=== PATIENT | female | born 1940 | race Caucasian/White ===

== ENCOUNTER 2020-12-31 10:15 | Inpatient (IN) ==
[2020-12-31 12:12] LABS: Basophils % 0.5 % (0.0-0.8); Eosinophils # 0.6 10*3/uL (0.0-0.87); Eosinophils % 6.6 % (0.00-10.9); Hematocrit 31.7 VOL% (35.7-47.0); Hemoglobin 9.2 GM/DL (12.0-16.0); Immature Granulocytes % 0.5 %; Immature Granulocytes Absolute 0.04 #; Lymphocytes % 11.2 % (21.3-54.2); Mean Corpuscular Volume 90.8 FL (87-102); Monocytes % 10.5 % (1.7-12.7); NRBC # 0.02 10*3/uL; Neutrophils % 70.7 % (38.7-73.9); Platelet Count 201 T/CUMM (130-400); Red Blood Count 3.49 MC/CUMM (3.8-5.5); Red Cell Distribution Width 17.6 % (9.3-17.3); White Blood Count 8.5 T/CUMM (4-12)
[2020-12-31 12:13] LABS: Anisocytosis 2+; Hypochromasia 1+; Macrocytosis 1+; Microcytosis 2+; Polychromasia 1+
[2020-12-31 12:15] LABS: Platelet Estimate Normal; Spherocytes 1+
[2020-12-31 12:27] LABS: Albumin 3.1 G/DL (3.4-5.0); Bilirubin,Total 0.6 MG/DL (0.2-1.0); Calcium 9.2 MG/DL (8.5-10.1); Osmolality,Calculated 284.7 MOS/KG (273-304); Potassium 3.8 MMOL/L (3.5-5.1); Total Protein 7.3 G/DL (6.4-8.2)
[2020-12-31] MEDS ORDERED: DEXTROSE 50% 25 GM/50 ML VIAL IV PRN (15:04)
[2020-12-31] MEDS ORDERED: ALUMINUM/MAGNES/SIMETH MAX STR 30 ML UDCUP PO PRN (15:04)
[2020-12-31] MEDS ORDERED: GLUCAGON 1 MG VIAL IM PRN (15:04)
[2020-12-31] MEDS ORDERED: hydrALAZINE 20 MG/1 ML VIAL IV PRN (15:04)
[2020-12-31] MEDS ORDERED: CALCIUM CARBONATE CHEW 500 MG TABLET PO PRN (15:04)
[2020-12-31] MEDS ORDERED: DOCUSATE SODIUM 100 MG CAPSULE PO PRN (15:04)
[2020-12-31] MEDS ORDERED: ONDANSETRON 4 MG/2 ML VIAL IV PRN (15:04)
[2020-12-31] MEDS ORDERED: ACETAMINOPHEN 325 MG TABLET PO PRN (15:04)
[2020-12-31] MEDS ORDERED: BUMETANIDE 1 MG/4 ML VIAL IV SCH (15:30)
[2020-12-31 15:41] LABS: Thyroid Stimulating Hormone 7.41 uIU/ml (0.358-3.74)
[2020-12-31 16:50] LABS: Free T4 (Free Thyroxine) 1.28 NG/DL (0.76-1.46)
[2020-12-31] MEDS: INSULIN LISPRO 100 UNIT/ML SUBCUT SCH (16:50)
[2021-01-01] MEDS: INSULIN LISPRO 100 UNIT/ML SUBCUT SCH ×5 (05:16→20:59)
[2021-01-01 05:35] LABS: Albumin 2.6 G/DL (3.4-5.0); Basophils # 0.1 10*3/uL (0.0-0.2); Basophils % 0.7 % (0.0-0.8); Bilirubin,Total 1.1 MG/DL (0.2-1.0); Calcium 8.8 MG/DL (8.5-10.1); Eosinophils # 0.7 10*3/uL (0.0-0.87); Eosinophils % 9.7 % (0.00-10.9); Hematocrit 29.2 VOL% (35.7-47.0); Immature Granulocytes % 0.4 %; Immature Granulocytes Absolute 0.03 #; Lymphocytes # 1.1 10*3/uL (1.4-4.0); Lymphocytes % 14.9 % (21.3-54.2); Mean Corpuscular HGB Conc 28.4 GM/DL (32-36); Mean Corpuscular Volume 92.1 FL (87-102); Mean Platelet Volume 9.9 FL (9.6-12.0); Monocytes % 13.3 % (1.7-12.7); Osmolality,Calculated 289.3 MOS/KG (273-304); Platelet Count 201 T/CUMM (130-400); Potassium 3.6 MMOL/L (3.5-5.1); Red Blood Count 3.17 MC/CUMM (3.8-5.5); Red Cell Distribution Width 17.6 % (9.3-17.3); Risk Ratio 1.83; VLDL CHOLESTEROL 19.4 MG/DL; White Blood Count 7.5 T/CUMM (4-12)
[2021-01-01 05:36] LABS: Hemoglobin 8.3 GM/DL (12.0-16.0)
[2021-01-01 05:42] LABS: Hypochromasia 1+; Microcytosis 1+; Platelet Estimate Adequate
[2021-01-01 08:33] LABS: % Iron Saturation 6.3 % (18-50); Ferritin 34.4 ng/ml (8-252)
[2021-01-01] MEDS: PANTOPRAZOLE 40 MG TABLET PO SCH (08:55)
[2021-01-01] MEDS: BUMETANIDE 1 MG/4 ML VIAL IV SCH ×2 (09:00→16:42)
[2021-01-01 09:46] LABS: Folate > 24.00 NG/ML (5.38-24.0); Vitamin B12 880 PG/ML (211-911)
[2021-01-01 13:29] LABS: Bacteria,Urine Few /HPF (Few); Bilirubin,Urine Negative (Negative); Blood, Urine Large mg/dL (Negative); Glucose,Urine (UA) Negative (Negative); Hyaline Casts,Urine 1 /LPF (0-3); Ketones,Urine Negative (Negative); Nitrite,Urine Positive (Negative); Protein,Urine Negative; RBC,Urine 54 /HPF (0-4); Squamous Epithelial Cell,Urine Occasional /HPF (0-10); Urine Appearance CLOUDY (Clear); Urine Color Yellow (Yellow); Urine Urobilinogen < 2.0 EU/DL (0.2-1.0)
[2021-01-01] MEDS ORDERED: LEVOFLOXACIN 250 MG TABLET PO SCH (14:00)
[2021-01-01] MEDS: metOLazone 5 MG TABLET PO SCH (14:40)
[2021-01-01 16:16] LABS: Protein/Creatinine Ratio,Urine 0.4 RATIO
[2021-01-01] MEDS: FERROUS SULFATE 325 MG TABLET PO SCH (16:37)
[2021-01-01] MEDS: CALCIUM (CARBONATE)/VITAMIN D 600 MG-400 UNIT TABLET PO SCH (20:59)
[2021-01-01] MEDS: DABIGATRAN 75 MG CAPSULE PO SCH (20:59)
[2021-01-01] MEDS: METOPROLOL SUCCINATE XL 25 MG TABLET PO SCH (20:59)
[2021-01-01] MEDS ORDERED: ROSUVASTATIN 20 MG TABLET PO SCH (21:00)
[2021-01-01] MEDS ORDERED: AMITRIPTYLINE 25 MG TABLET PO SCH (21:00)
[2021-01-02 04:41] LABS: Calcium 8.5 MG/DL (8.5-10.1); Osmolality,Calculated 283.7 MOS/KG (273-304); Potassium 3.5 MMOL/L (3.5-5.1)
[2021-01-02 04:48] LABS: Basophils # 0.1 10*3/uL (0.0-0.2); Basophils % 0.7 % (0.0-0.8); Eosinophils # 0.6 10*3/uL (0.0-0.87); Eosinophils % 8.8 % (0.00-10.9); Hematocrit 29.9 VOL% (35.7-47.0); Hemoglobin 8.3 GM/DL (12.0-16.0); Immature Granulocytes % 0.3 %; Immature Granulocytes Absolute 0.02 #; Lymphocytes # 1.2 10*3/uL (1.4-4.0); Lymphocytes % 17.6 % (21.3-54.2); Mean Corpuscular HGB Conc 27.8 GM/DL (32-36); Mean Corpuscular Volume 91.7 FL (87-102); Mean Platelet Volume 10.4 FL (9.6-12.0); NRBC # 0.02 10*3/uL; Neutrophils % 58.6 % (38.7-73.9); Platelet Count 194 T/CUMM (130-400); Red Blood Count 3.26 MC/CUMM (3.8-5.5); Red Cell Distribution Width 17.7 % (9.3-17.3); White Blood Count 6.8 T/CUMM (4-12)
[2021-01-02] MEDS ORDERED: LEVOTHYROXINE 125 MCG TABLET PO SCH (06:30)
[2021-01-02] MEDS: BUMETANIDE 1 MG/4 ML VIAL IV SCH (08:41)
[2021-01-02] MEDS: INSULIN LISPRO 100 UNIT/ML SUBCUT SCH ×2 (08:54→12:33)
[2021-01-02] MEDS: METOPROLOL SUCCINATE XL 25 MG TABLET PO SCH (08:55)
[2021-01-02] MEDS: FERROUS SULFATE 325 MG TABLET PO SCH (08:55)
[2021-01-02] MEDS: PANTOPRAZOLE 40 MG TABLET PO SCH (08:55)
[2021-01-02] MEDS: CALCIUM (CARBONATE)/VITAMIN D 600 MG-400 UNIT TABLET PO SCH (08:55)
[2021-01-02] MEDS: DABIGATRAN 75 MG CAPSULE PO SCH (08:56)
[2021-01-02] MEDS: metOLazone 5 MG TABLET PO SCH (08:56)
[2021-01-02] MEDS ORDERED: FERROUS SULFATE 325 MG TABLET PO SCH (09:00)
[2021-01-02] MEDS ORDERED: COENZYME Q10 100 MG CAPSULE PO SCH (09:00)
[2021-01-02] MEDS ORDERED: ASPIRIN EC 81 MG TABLET PO SCH (09:00)
[2021-01-02] MEDS ORDERED: AMIODARONE 200 MG TABLET PO SCH (09:00)
[2021-01-02 12:11] VITALS: BP 118/67
== END 2021-01-02 14:19 | disposition home health service (06) | DRG 291 ==
LOC: EDUNIT# → N.ED 10:15 → SUATTDRO 15:04 → N.EDINP 15:04 → N.TELEN 21:31
PROVIDERS: ADMIT Internal Medicine; ATTEND Family Medicine

== ENCOUNTER 2021-03-12 13:07 | Inpatient (IN) ==
[2021-03-12 17:27] LABS: Basophils # 0.1 10*3/uL (0.0-0.2); Basophils % 0.3 % (0.0-0.8); Eosinophils # 0.1 10*3/uL (0.0-0.87); Eosinophils % 0.5 % (0.00-10.9); Hematocrit 32.4 VOL% (35.7-47.0); Hemoglobin 9.6 GM/DL (12.0-16.0); Immature Granulocytes % 0.7 %; Immature Granulocytes Absolute 0.15 #; Lymphocytes % 9.7 % (21.3-54.2); Mean Corpuscular HGB Conc 29.6 GM/DL (32-36); Mean Corpuscular Volume 101.6 FL (87-102); Mean Platelet Volume 9.4 FL (9.6-12.0); Monocytes % 8.6 % (1.7-12.7); Neutrophils % 80.2 % (38.7-73.9); Platelet Count 213 T/CUMM (130-400); Red Blood Count 3.19 MC/CUMM (3.8-5.5); Red Cell Distribution Width 21.1 % (9.3-17.3); White Blood Count 20.4 T/CUMM (4-12)
[2021-03-12 17:34] LABS: INR 1.2; PT Patient Result 13.4 SECS (10.5-12.0); Partial Thromboplastin Time 29.9 SECS (23.9-33.8)
[2021-03-12 17:41] LABS: Albumin 2.2 G/DL (3.4-5.0); Anisocytosis 2+; Band Neutrophils 3 % (0-10); Bilirubin,Total 0.7 MG/DL (0.20-1.00); Calcium 9.2 MG/DL (8.5-10.1); Lymphocytes 6 % (20-55); Osmolality,Calculated 292.7 MOS/KG (273-304); Platelet Estimate Normal; Polychromasia Slight; Potassium 3.2 MMOL/L (3.5-5.1); Segmented Neutrophils 80 % (50-85); Total Cells Counted 100; Total Protein 7.8 G/DL (6.4-8.2)
[2021-03-12 17:42] LABS: Macrocytosis 1+; Spherocytes Few
[2021-03-12] MEDS ORDERED: ONDANSETRON 4 MG/2 ML VIAL IV STA (18:00)
[2021-03-12] MEDS ORDERED: MORPHINE 2 MG/1 ML SYRINGE IV STA (18:00)
[2021-03-12] MEDS ORDERED: ONDANSETRON 4 MG/2 ML VIAL ONE (18:09)
[2021-03-12] MEDS ORDERED: MORPHINE 2 MG/1 ML SYRINGE ONE (18:09)
[2021-03-12] MEDS ORDERED: CLINDAMYCIN INJ 900 MG/50 ML PREMIX IV STA (18:48)
[2021-03-12] MEDS ORDERED: ACETAMINOPHEN 325 MG TABLET PO PRN (20:41)
[2021-03-12] MEDS ORDERED: DEXTROSE 50% 25 GM/50 ML VIAL IV PRN ×2 (20:41)
[2021-03-12] MEDS ORDERED: ONDANSETRON 4 MG/2 ML VIAL IV PRN (20:41)
[2021-03-12] MEDS ORDERED: GLUCAGON 1 MG VIAL IM PRN ×2 (20:41)
[2021-03-12] MEDS ORDERED: DABIGATRAN 75 MG CAPSULE PO SCH (21:00)
[2021-03-12] MEDS ORDERED: VANCOMYCIN INJ 1,000 MG in SODIUM CHLORIDE 0.9% 250 ML IV SCH (21:00)
[2021-03-12] MEDS ORDERED: VANCOMYCIN INJ 1,500 MG in SODIUM CHLORIDE 0.9% 500 ML IV PRN (21:23)
[2021-03-12] MEDS ORDERED: VANCOMYCIN INJ 1,500 MG in SODIUM CHLORIDE 0.9% 500 ML IV ONE (22:00)
[2021-03-13] MEDS: INSULIN LISPRO 100 UNIT/ML SUBCUT SCH ×5 (00:09→20:29)
[2021-03-13] MEDS: LACTATED RINGERS 1,000 ML IV SCH ×2 (00:27→10:39)
[2021-03-13] MEDS: METOPROLOL SUCCINATE XL 25 MG TABLET PO SCH ×3 (00:29→20:15)
[2021-03-13] MEDS: GABAPENTIN 300 MG CAPSULE PO SCH ×2 (00:29→20:15)
[2021-03-13] MEDS: APIXABAN 2.5 MG TABLET PO SCH ×2 (00:29→08:50)
[2021-03-13] MEDS: MORPHINE 2 MG/1 ML SYRINGE IV PRN ×2 (04:46→20:17)
[2021-03-13 05:31] LABS: Calcium 9.3 MG/DL (8.5-10.1); Osmolality,Calculated 294.5 MOS/KG (273-304); Potassium 3.3 MMOL/L (3.5-5.1)
[2021-03-13] MEDS: LEVOTHYROXINE 125 MCG TABLET PO SCH (05:42)
[2021-03-13 06:02] LABS: Basophils # 0.1 10*3/uL (0.0-0.2); Basophils % 0.4 % (0.0-0.8); Eosinophils # 0.3 10*3/uL (0.0-0.87); Eosinophils % 1.8 % (0.00-10.9); Hematocrit 32.5 VOL% (35.7-47.0); Hemoglobin 9.2 GM/DL (12.0-16.0); Immature Granulocytes % 0.7 %; Immature Granulocytes Absolute 0.11 #; Lymphocytes # 1.4 10*3/uL (1.4-4.0); Lymphocytes % 8.7 % (21.3-54.2); Mean Corpuscular HGB Conc 28.3 GM/DL (32-36); Mean Corpuscular Volume 105.2 FL (87-102); Mean Platelet Volume 9.7 FL (9.6-12.0); Monocytes % 9.4 % (1.7-12.7); Platelet Count 204 T/CUMM (130-400); Red Blood Count 3.09 MC/CUMM (3.8-5.5); White Blood Count 16.4 T/CUMM (4-12)
[2021-03-13] MEDS ORDERED: CALCIUM (CARBONATE) 600 MG TABLET PO SCH (08:00)
[2021-03-13 08:01] LABS: Macrocytosis 2+; Microcytosis 1+; Platelet Estimate Normal
[2021-03-13] MEDS: CALCIUM (CARBONATE) 500 MG TABLET PO SCH ×2 (08:49→17:45)
[2021-03-13] MEDS: AMIODARONE 200 MG TABLET PO SCH (08:49)
[2021-03-13] MEDS: ROSUVASTATIN 20 MG TABLET PO SCH (08:50)
[2021-03-13] MEDS: ASPIRIN EC 81 MG TABLET PO SCH (08:50)
[2021-03-13] MEDS: DOCUSATE SODIUM 100 MG CAPSULE PO SCH (08:50)
[2021-03-13] MEDS: PANTOPRAZOLE 40 MG TABLET PO SCH (08:50)
[2021-03-13] MEDS: TORSEMIDE 20 MG TABLET PO SCH (08:50)
[2021-03-13] MEDS: FERROUS SULFATE 325 MG TABLET PO SCH (08:52)
[2021-03-13 15:44] LABS: Cholesterol Crystals None Seen /LPF
[2021-03-13 15:59] LABS: Lymphocytes,Synovial Fluid 31 %; Neutrophils,Synovial Fluid 69 %
[2021-03-13] MEDS: DESITIN 4OZ/NYSTATIN 15 GRAM MIXTURE PASTE TOP SCH ×2 (17:45→20:15)
[2021-03-14] MEDS: MORPHINE 2 MG/1 ML SYRINGE IV PRN (05:42)
[2021-03-14] MEDS: LEVOTHYROXINE 125 MCG TABLET PO SCH (05:45)
[2021-03-14] MEDS ORDERED: LIDOCAINE 2% 5 ML VIAL ONE (06:58)
[2021-03-14] MEDS ORDERED: fentaNYL 100 MCG/2 ML VIAL ONE (06:58)
[2021-03-14] MEDS ORDERED: ONDANSETRON 4 MG/2 ML VIAL ONE (06:58)
[2021-03-14] MEDS ORDERED: propofoL 200 MG/20 ML VIAL IV ONE (06:58)
[2021-03-14] MEDS ORDERED: SEVOFLURANE 1 UNIT/15 MINUTE INH ONE ×2 (06:58→08:35)
[2021-03-14] MEDS: INSULIN LISPRO 100 UNIT/ML SUBCUT SCH ×4 (07:13→20:05)
[2021-03-14 07:24] LABS: Osmolality,Calculated 292.8 MOS/KG (273-304); Potassium 3.9 MMOL/L (3.5-5.1)
[2021-03-14 07:34] LABS: Basophils # 0.1 10*3/uL (0.0-0.2); Basophils % 0.6 % (0.0-0.8); Eosinophils # 0.2 10*3/uL (0.0-0.87); Hematocrit 31.9 VOL% (35.7-47.0); Hemoglobin 9.3 GM/DL (12.0-16.0); Immature Granulocytes % 0.9 %; Immature Granulocytes Absolute 0.16 #; Lymphocytes % 11.7 % (21.3-54.2); Mean Corpuscular HGB Conc 29.2 GM/DL (32-36); Mean Corpuscular Volume 104.6 FL (87-102); Mean Platelet Volume 9.8 FL (9.6-12.0); Monocytes % 9.4 % (1.7-12.7); NRBC # 0.06 10*3/uL; Neutrophils % 76.4 % (38.7-73.9); Platelet Count 226 T/CUMM (130-400); Red Blood Count 3.05 MC/CUMM (3.8-5.5); Red Cell Distribution Width 20.7 % (9.3-17.3); White Blood Count 17.4 T/CUMM (4-12)
[2021-03-14] MEDS ORDERED: KETAMINE 500 MG/10 ML VIAL ONE (07:45)
[2021-03-14] MEDS ORDERED: LIDOCAINE 2%/EPI 20 ML VIAL ONE (07:49)
[2021-03-14 08:39] LABS: Platelet Estimate Normal
[2021-03-14 08:40] LABS: Anisocytosis 1+; Macrocytosis 1+; Polychromasia Slight
[2021-03-14] MEDS ORDERED: metOLazone 5 MG TABLET PO SCH (09:00)
[2021-03-14] MEDS ORDERED: VANCOMYCIN INJ 1,500 MG in SODIUM CHLORIDE 0.9% 500 ML IV ONE (11:00)
[2021-03-14] MEDS: AMIODARONE 200 MG TABLET PO SCH (13:52)
[2021-03-14] MEDS: TORSEMIDE 20 MG TABLET PO SCH (13:52)
[2021-03-14] MEDS: ASPIRIN EC 81 MG TABLET PO SCH (13:52)
[2021-03-14] MEDS: allopurinoL 100 MG TABLET PO SCH (13:54)
[2021-03-14] MEDS: ROSUVASTATIN 20 MG TABLET PO SCH (14:01)
[2021-03-14] MEDS: DESITIN 4OZ/NYSTATIN 15 GRAM MIXTURE PASTE TOP SCH ×2 (14:02→23:32)
[2021-03-14] MEDS: DOCUSATE SODIUM 100 MG CAPSULE PO SCH (14:14)
[2021-03-14] MEDS: CALCIUM (CARBONATE) 500 MG TABLET PO SCH ×2 (14:14→17:45)
[2021-03-14] MEDS: PANTOPRAZOLE 40 MG TABLET PO SCH (14:14)
[2021-03-14] MEDS: METOPROLOL SUCCINATE XL 25 MG TABLET PO SCH ×2 (14:15→20:04)
[2021-03-14] MEDS: LACTATED RINGERS 1,000 ML IV SCH (14:18)
[2021-03-14] MEDS: APIXABAN 2.5 MG TABLET PO SCH (20:03)
[2021-03-14] MEDS: GABAPENTIN 300 MG CAPSULE PO SCH (20:04)
[2021-03-15 06:05] LABS: Basophils # 0.1 10*3/uL (0.0-0.2); Eosinophils # 0.2 10*3/uL (0.0-0.87); Eosinophils % 1.5 % (0.00-10.9); Hematocrit 28.5 VOL% (35.7-47.0); Hemoglobin 8.2 GM/DL (12.0-16.0); Immature Granulocytes % 1.5 %; Immature Granulocytes Absolute 0.21 #; Lymphocytes # 1.8 10*3/uL (1.4-4.0); Mean Corpuscular HGB Conc 28.8 GM/DL (32-36); Mean Corpuscular Volume 103.6 FL (87-102); Mean Platelet Volume 10.1 FL (9.6-12.0); Monocytes % 9.3 % (1.7-12.7); NRBC # 0.07 10*3/uL; Neutrophils % 73.7 % (38.7-73.9); Platelet Count 208 T/CUMM (130-400); Red Blood Count 2.75 MC/CUMM (3.8-5.5); Red Cell Distribution Width 20.2 % (9.3-17.3); White Blood Count 13.9 T/CUMM (4-12)
[2021-03-15] MEDS: LEVOTHYROXINE 125 MCG TABLET PO SCH (06:16)
[2021-03-15 06:49] LABS: Calcium 8.4 MG/DL (8.5-10.1); Osmolality,Calculated 295.7 MOS/KG (273-304); Potassium 3.9 MMOL/L (3.5-5.1)
[2021-03-15 07:03] LABS: Anisocytosis 3+; Macrocytosis 1+; Platelet Estimate Normal; Polychromasia Slight
[2021-03-15] MEDS: METOPROLOL SUCCINATE XL 25 MG TABLET PO SCH ×2 (08:49→22:05)
[2021-03-15] MEDS: FERROUS SULFATE 325 MG TABLET PO SCH (08:49)
[2021-03-15] MEDS: DOCUSATE SODIUM 100 MG CAPSULE PO SCH (08:49)
[2021-03-15] MEDS: APIXABAN 2.5 MG TABLET PO SCH ×2 (08:50→22:05)
[2021-03-15] MEDS: AMIODARONE 200 MG TABLET PO SCH (08:50)
[2021-03-15] MEDS: ASPIRIN EC 81 MG TABLET PO SCH (08:50)
[2021-03-15] MEDS: ROSUVASTATIN 20 MG TABLET PO SCH (08:50)
[2021-03-15] MEDS: DESITIN 4OZ/NYSTATIN 15 GRAM MIXTURE PASTE TOP SCH ×2 (08:50→22:07)
[2021-03-15] MEDS: CALCIUM (CARBONATE) 500 MG TABLET PO SCH ×2 (08:50→18:02)
[2021-03-15] MEDS: allopurinoL 100 MG TABLET PO SCH (08:50)
[2021-03-15] MEDS: PANTOPRAZOLE 40 MG TABLET PO SCH (08:53)
[2021-03-15] MEDS: LACTATED RINGERS 1,000 ML IV SCH ×2 (11:26→18:46)
[2021-03-15] MEDS: INSULIN LISPRO 100 UNIT/ML SUBCUT SCH ×4 (11:26→22:07)
[2021-03-16] MEDS: LACTATED RINGERS 1,000 ML IV SCH ×2 (01:53→07:15)
[2021-03-16] MEDS: LEVOTHYROXINE 125 MCG TABLET PO SCH ×2 (05:22→07:15)
[2021-03-16 05:40] LABS: Basophils # 0.1 10*3/uL (0.0-0.2); Basophils % 0.7 % (0.0-0.8); Eosinophils # 0.3 10*3/uL (0.0-0.87); Eosinophils % 1.7 % (0.00-10.9); Hematocrit 28.5 VOL% (35.7-47.0); Hemoglobin 8.3 GM/DL (12.0-16.0); Immature Granulocytes % 3.1 %; Immature Granulocytes Absolute 0.46 #; Lymphocytes # 1.6 10*3/uL (1.4-4.0); Lymphocytes % 10.6 % (21.3-54.2); Mean Corpuscular HGB Conc 29.1 GM/DL (32-36); Mean Corpuscular Volume 102.2 FL (87-102); Mean Platelet Volume 10.2 FL (9.6-12.0); Monocytes % 8.4 % (1.7-12.7); NRBC # 0.16 10*3/uL; Neutrophils % 75.5 % (38.7-73.9); Platelet Count 198 T/CUMM (130-400); Red Blood Count 2.79 MC/CUMM (3.8-5.5); Red Cell Distribution Width 20.1 % (9.3-17.3)
[2021-03-16 05:50] LABS: Calcium 8.6 MG/DL (8.5-10.1); Osmolality,Calculated 292.1 MOS/KG (273-304); Potassium 3.9 MMOL/L (3.5-5.1)
[2021-03-16 06:11] LABS: Anisocytosis 2+; Macrocytosis 2+; Platelet Estimate Normal; Spherocytes Few
[2021-03-16] MEDS: INSULIN LISPRO 100 UNIT/ML SUBCUT SCH ×4 (08:13→21:16)
[2021-03-16] MEDS: ROSUVASTATIN 20 MG TABLET PO SCH (09:43)
[2021-03-16] MEDS: allopurinoL 100 MG TABLET PO SCH (09:43)
[2021-03-16] MEDS: AMIODARONE 200 MG TABLET PO SCH (09:44)
[2021-03-16] MEDS: ASPIRIN EC 81 MG TABLET PO SCH (09:44)
[2021-03-16] MEDS: APIXABAN 2.5 MG TABLET PO SCH ×2 (09:44→21:10)
[2021-03-16] MEDS: METOPROLOL SUCCINATE XL 25 MG TABLET PO SCH ×2 (09:45→21:12)
[2021-03-16] MEDS: DESITIN 4OZ/NYSTATIN 15 GRAM MIXTURE PASTE TOP SCH ×2 (09:48→21:10)
[2021-03-16] MEDS: PANTOPRAZOLE 40 MG TABLET PO SCH (09:56)
[2021-03-16] MEDS: DOCUSATE SODIUM 100 MG CAPSULE PO SCH (09:56)
[2021-03-16] MEDS: CALCIUM (CARBONATE) 500 MG TABLET PO SCH ×2 (09:56→17:48)
[2021-03-16] MEDS ORDERED: ALBUTEROL/IPRATROPIUM 3 ML NEB RESP TX PRN (12:23)
[2021-03-16] MEDS: LACTULOSE 20 GM/30 ML UDCUP PO SCH ×2 (13:01→21:10)
[2021-03-16] MEDS: LINEZOLID INJ 600 MG/300 ML PREMIX IV SCH (14:07)
[2021-03-17] MEDS: LINEZOLID INJ 600 MG/300 ML PREMIX IV SCH (01:42)
[2021-03-17 02:15] LABS: Amorphous Crystals,Urine Occasional /HPF (Few); Bilirubin,Urine Negative (Negative); Blood, Urine Moderate mg/dL (Negative); Glucose,Urine (UA) Negative (Negative); Hyaline Casts,Urine 5 /LPF (0-3); Ketones,Urine Negative (Negative); Nitrite,Urine Negative (Negative); Protein,Urine 30 MG/DL; Urine Appearance CLOUDY (Clear); Urine Color Amber (Yellow); Urine Specific Gravity 1.013 (1.001-1.035)
[2021-03-17] MEDS: LEVOTHYROXINE 125 MCG TABLET PO SCH (06:35)
[2021-03-17 06:50] LABS: Basophils # 0.1 10*3/uL (0.0-0.2); Basophils % 0.6 % (0.0-0.8); Eosinophils # 0.4 10*3/uL (0.0-0.87); Eosinophils % 2.4 % (0.00-10.9); Hematocrit 27.2 VOL% (35.7-47.0); Hemoglobin 7.9 GM/DL (12.0-16.0); Immature Granulocytes % 3.1 %; Immature Granulocytes Absolute 0.45 #; Lymphocytes # 1.4 10*3/uL (1.4-4.0); Lymphocytes % 9.5 % (21.3-54.2); Mean Corpuscular Volume 104.6 FL (87-102); Mean Platelet Volume 10.6 FL (9.6-12.0); NRBC # 0.24 10*3/uL; Neutrophils % 75.4 % (38.7-73.9); Platelet Count 204 T/CUMM (130-400); Red Cell Distribution Width 20.3 % (9.3-17.3); White Blood Count 14.5 T/CUMM (4-12)
[2021-03-17 07:00] LABS: Hypochromasia 1+; Microcytosis 1+; Platelet Estimate Adequate
[2021-03-17 07:06] LABS: Calcium 8.4 MG/DL (8.5-10.1); Osmolality,Calculated 292.2 MOS/KG (273-304); Potassium 3.6 MMOL/L (3.5-5.1)
[2021-03-17] MEDS: PANTOPRAZOLE 40 MG TABLET PO SCH (09:26)
[2021-03-17] MEDS: CALCIUM (CARBONATE) 500 MG TABLET PO SCH ×2 (09:26→17:26)
[2021-03-17] MEDS: AMIODARONE 200 MG TABLET PO SCH (09:26)
[2021-03-17] MEDS: METOPROLOL SUCCINATE XL 25 MG TABLET PO SCH ×2 (09:26→22:46)
[2021-03-17] MEDS: APIXABAN 2.5 MG TABLET PO SCH ×2 (09:26→22:46)
[2021-03-17] MEDS: LACTULOSE 20 GM/30 ML UDCUP PO SCH ×2 (09:26→22:46)
[2021-03-17] MEDS: ROSUVASTATIN 20 MG TABLET PO SCH (09:26)
[2021-03-17] MEDS: DOCUSATE SODIUM 100 MG CAPSULE PO SCH (09:26)
[2021-03-17] MEDS: ASPIRIN EC 81 MG TABLET PO SCH (09:26)
[2021-03-17] MEDS: allopurinoL 100 MG TABLET PO SCH (09:33)
[2021-03-17] MEDS: FERROUS SULFATE 325 MG TABLET PO SCH (09:34)
[2021-03-17] MEDS: DESITIN 4OZ/NYSTATIN 15 GRAM MIXTURE PASTE TOP SCH ×2 (09:34→22:47)
[2021-03-17] MEDS: INSULIN LISPRO 100 UNIT/ML SUBCUT SCH ×4 (10:14→22:45)
[2021-03-17] MEDS: LINEZOLID 600 MG TABLET PO SCH (22:46)
[2021-03-18 05:40] LABS: Basophils # 0.1 10*3/uL (0.0-0.2); Basophils % 0.6 % (0.0-0.8); Eosinophils # 0.5 10*3/uL (0.0-0.87); Eosinophils % 3.1 % (0.00-10.9); Hematocrit 27.7 VOL% (35.7-47.0); Hemoglobin 7.9 GM/DL (12.0-16.0); Immature Granulocytes % 3.9 %; Immature Granulocytes Absolute 0.59 #; Lymphocytes # 1.6 10*3/uL (1.4-4.0); Mean Corpuscular HGB Conc 28.5 GM/DL (32-36); Mean Corpuscular Volume 103.4 FL (87-102); Mean Platelet Volume 10.8 FL (9.6-12.0); NRBC # 0.36 10*3/uL; Neutrophils % 71.4 % (38.7-73.9); Platelet Count 212 T/CUMM (130-400); Red Blood Count 2.68 MC/CUMM (3.8-5.5); Red Cell Distribution Width 20.3 % (9.3-17.3); White Blood Count 14.9 T/CUMM (4-12)
[2021-03-18] MEDS: LEVOTHYROXINE 125 MCG TABLET PO SCH (05:47)
[2021-03-18 06:00] LABS: Calcium 8.9 MG/DL (8.5-10.1); Osmolality,Calculated 290.2 MOS/KG (273-304)
[2021-03-18 06:02] LABS: Band Neutrophils 2 % (0-10); Eosinophils 4 % (0-10); Hypochromasia 1+; Lymphocytes 11 % (20-55); Microcytosis 1+; Myelocytes 1 %; Nucleated Red Blood Cells 4 (0-5); Platelet Estimate Normal; Polychromasia Slight; Segmented Neutrophils 69 % (50-85); Total Cells Counted 100
[2021-03-18] MEDS: allopurinoL 100 MG TABLET PO SCH (09:37)
[2021-03-18] MEDS: AMIODARONE 200 MG TABLET PO SCH (09:38)
[2021-03-18] MEDS: METOPROLOL SUCCINATE XL 25 MG TABLET PO SCH (09:39)
[2021-03-18] MEDS: APIXABAN 2.5 MG TABLET PO SCH (09:39)
[2021-03-18] MEDS: DOCUSATE SODIUM 100 MG CAPSULE PO SCH (09:39)
[2021-03-18] MEDS: ASPIRIN EC 81 MG TABLET PO SCH (09:39)
[2021-03-18] MEDS: ROSUVASTATIN 20 MG TABLET PO SCH (09:40)
[2021-03-18] MEDS: LACTULOSE 20 GM/30 ML UDCUP PO SCH ×2 (09:40→11:09)
[2021-03-18] MEDS: PANTOPRAZOLE 40 MG TABLET PO SCH (09:40)
[2021-03-18] MEDS ORDERED: ERTAPENEM 1,000 MG in SODIUM CHLORIDE 0.9% 100 ML IV SCH (10:30)
[2021-03-18] MEDS: INSULIN LISPRO 100 UNIT/ML SUBCUT SCH ×2 (10:33→12:16)
[2021-03-18] MEDS: DESITIN 4OZ/NYSTATIN 15 GRAM MIXTURE PASTE TOP SCH (10:34)
[2021-03-18] MEDS: LINEZOLID 600 MG TABLET PO SCH (10:34)
[2021-03-18 11:27] VITALS: BP 126/69
[2021-03-18] MEDS: CALCIUM (CARBONATE) 500 MG TABLET PO SCH (12:16)
== END 2021-03-18 13:45 | disposition swing bed (61) | DRG 500 ==
LOC: EDUNIT# → N.ED 13:07 → N.EDINP 13:07 → SUATTDRO 20:41 → N.5E 21:07 → SUATTDRO 03-14 12:47
PROVIDERS: ADMIT Internal Medicine; ATTEND Hospitalist